=== PATIENT | female | born 2000 | race Caucasian/White ===

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

== ENCOUNTER 2019-07-15 11:06 | Inpatient (IN) ==
[2019-07-15 11:46] LABS: Basophils % 0.4 %; Eosinophils % 0.5 %; Hematocrit 45.2 % (35.3-44.9); Hemoglobin 14.9 g/dL (11.5-15.4); Immature Granulocytes % 0.1 % (0-4); Lymphocytes # 1.6 K/mcL (0.6-4.6); Lymphocytes % 20.2 %; Mean Corpuscular Hemoglobin 28.3 pg (28.0-33.3); Mean Corpuscular Volume 85.8 fL (83.0-100.0); Mean Platelet Volume 10.1 fL (9.4-12.4); Monocytes # 0.5 K/mcL (0.0-1.3); Monocytes % 6.1 %; Neutrophils # 5.9 K/mcL (1.6-8.9); Platelet Count 348 K/mcL (140-400); Red Blood Count 5.27 M/mcL (3.82-4.97); Red Cell Distribution Width 12.9 % (11.5-14.5); Segmented Neutrophils % 72.7 %; White Blood Count 8.1 K/mcL (4.3-11.1)
[2019-07-15 11:46] LABS: Bilirubin,Urine Negative (Negative); Blood,Urine Negative (Negative); Clarity,Urine Clear (Clear); Color,Urine Yellow (Yellow); Glucose,Urine (UA) Normal (Normal); Ketones,Urine Negative (Negative); Leukocyte Esterase,Urine Negative (Negative); Nitrite,Urine Negative (Negative); PH,Urine 6.5 pH Units (5.0-8.0); Protein,Urine Negative (Neg-Trace); Specific Gravity,Urine 1.023 (1.010-1.025); Urobilinogen,Urine Normal (Normal)
[2019-07-15 11:59] LABS: Amphetamine Screen,Urine Negative ng/mL (Cutoff=1000); Barbiturate Screen,Urine Negative ng/mL (Cutoff=200); Benzodiazepines Screen,Urine Negative ng/mL (Cutoff=200); Cannabinoid Screen,Urine Positive ng/mL (Cutoff = 50); Cocaine Screen,Urine Negative ng/mL (Cutoff= 300); Opiate Screen,Urine Negative ng/mL (Cutoff=300); Phencyclidine Screen,Urine Negative ng/mL (Cutoff=25)
[2019-07-15 12:06] LABS: Acetaminophen < 10 mcg/mL (10-20); BUN/Creatinine Ratio 16 (6-26); Blood Urea Nitrogen 11 mg/dL (6-20); Calcium 9.8 mg/dL (8.6-10.3); Carbon Dioxide 24 mEq/L (23-29); Chloride 108 mEq/L (98-107); Ethanol < 10 mg/dL (Less than 10); Glucose 107 mg/dL (70-105); Osmolality,Calculated 284 (280-300); Potassium 3.9 mEq/L (3.5-5.1); Salicylate < 2.5 mg/dL (15.0-30.0); Sodium 137 mEq/L (136-145); eGFR For African Americans > 60; eGFR For Non-African Americans > 60
[2019-07-15] MEDS ORDERED: Haloperidol Lactate 5 MG/ML VIAL IM PRN (14:45)
[2019-07-15] MEDS ORDERED: MOM Conc 10 ML UD.LIQ PO PRN (14:45)
[2019-07-15] MEDS ORDERED: Mag Hydrox/Al Hydrox/Simeth 30 ML UDC PO PRN (14:45)
[2019-07-15] MEDS ORDERED: traZODone 50 MG TABLET PO PRN (14:45)
[2019-07-15] MEDS ORDERED: *HR* LORazepam 1 MG TABLET PO PRN (14:45)
[2019-07-15] MEDS ORDERED: *HR* LORazepam 2 MG/ML VIAL IM PRN (14:45)
[2019-07-15] MEDS: Acetaminophen 325 MG TABLET PO PRN (20:27)
[2019-07-16] MEDS: hydrOXYzine pamoate 25 MG CAPSULE PO PRN (21:03)
[2019-07-17] MEDS: hydrOXYzine pamoate 25 MG CAPSULE PO PRN ×2 (10:06→21:30)
[2019-07-18] MEDS ORDERED: EPINEPHrine 1 MG/ML VIAL SQ PRN (10:47)
[2019-07-18] MEDS: hydrOXYzine pamoate 25 MG CAPSULE PO PRN ×2 (15:46→21:01)
[2019-07-18] MEDS: Acetaminophen 325 MG TABLET PO PRN (21:01)
[2019-07-19] MEDS: hydrOXYzine pamoate 25 MG CAPSULE PO PRN ×3 (12:09→23:47)
[2019-07-20 09:05] VITALS: BP 111/68
[2019-07-20] MEDS ORDERED: FLU Vac QV 19-20 (6Month+)/PF 0.5 ML SYRINGE IM ONE (11:28)
== END 2019-07-20 12:40 | disposition home or self-care (01) | DRG 751 ==
LOC: EMEROOARM 11:06 → 1ANU 14:42 → SUATTDRO 14:42 → 1ANU 14:58
PROVIDERS: ADMIT Psychiatry & Neurology Psychiatry; ATTEND Psychiatry & Neurology Psychiatry